=== PATIENT | male | born 1960 | race Two or more races ===

== ENCOUNTER → 2017-12-07 | Outpatient (CLI) | payer OTHER ==
[2017-12-07 11:12] LABS: ALT 30 U/L (21-72); AST 30 U/L (17-59); Cholesterol 152 mg/dL (<200); HDL Cholesterol 53 mg/dL (40-60); LDL Cholesterol,Calculated 63 mg/dL (0-99); Triglycerides 178 mg/dL (<150)
== END | disposition home or self-care (01) ==
LOC: LABWHC1 10:34
PROVIDERS: ATTEND Nurse Practitioner Adult Health
DX: E78.2 Mixed hyperlipidemia (principal)
CPT/HCPCS: 36415; 80061; 84450; 84460

== ENCOUNTER 2018-07-10 11:22 | Day surgery (SDC) | payer OTHER ==
[~2018-07-10 11:22] MED LIST: LACTATED RINGERS 1,000 ML IV SCH; SODIUM CHLORIDE 0.9% 1,000 ML IV SCH
[2018-07-10 11:58] VITALS: TEMP 98.2
[2018-07-10] MEDS ORDERED: PROPOFOL 10 MG/ML 20 ML VIAL IV ONE (12:10)
[2018-07-10 12:40] LABS: Anion Gap 7 mmol/L; Blood Urea Nitrogen 18 mg/dL (9-20); Calcium 9.7 mg/dL (8.4-10.2); Carbon Dioxide 23 mmol/L (22-30); Chloride 111 mmol/L (98-107); Glucose 96 mg/dL (74-99); Potassium 5.3 mmol/L (3.5-5.1); Sodium 141 mmol/L (137-145)
[2018-07-10] MEDS ORDERED: SODIUM CHLORIDE 0.9% 500 ML 500 ML IV ONE (12:41)
--- NOTE | 2018-07-10 13:07 | P.PCN ---
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 Recurrent runs of long nonsustained ventricular tachycardia with VA conduction [employer] device planted in [facility] in 2014, energy and ICD lead 143, serial #[id number] P waves 3.2 mV, pacing impedance 803 ohms, pacing threshold 0.4 V @ 0.5 milliseconds R waves 16 mV, pacing impedance 478 ohms, pacing threshold 0.6 V at 0.5 ms Shocking impedance 76 ohms Atrial pacing 34%, he is programmed DDDR, rate responsiveness and pace heart rate 60 bpm Histograms reveal predominant pacing at slow heart rates below 60 not above 110 beats a minute Shock and T wave protocol was used to induce ventricular fibrillation. This was adequately and appropriately detected at least sensitivity and successfully internally defibrillated with an 11 J shock Charge time 2 seconds shocking impedance 58 ohms, initial polarity AV node Wenckebach block 140 bpm VA Wenckebach block greater than 140 beats a minute PVARP reprogrammed MADIT RIT programming. Appropriate antitachycardia pacing cardioversion defibrillations First cardioversion 11 J first defibrillation 21 J Cinefluoroscopy revealed the ICD lead was not all the way in the RV apex. He had a DFT is adequate sensing adequate pacing threshold adequate patient is a dual-chamber device Bradycardia pacing reprogrammed. Rate responsiveness turned off. Basal rate reprogrammed to 50 PPM QRS width 104 ms Impression Recurrent nonsustained ventricular tachycardia with VA conduction Cinefluoroscopy revealed that the ICD lead was not in the RV apex completely. It was closer to the mid body of the right ventricle Appropriate pacing and sensing function DFT at or below 11 J Plan If he has recurrent ventricular tachycardia then consideration should be given for VT ablation Anesthesia: ARLIN
[2018-07-10 13:13] VITALS: RESP 16
[2018-07-10 13:58] VITALS: BP 131/70; PULSE 57
== END 2018-07-10 13:47 | disposition home or self-care (01) ==
LOC: CATHEP 11:22
PROVIDERS: ATTEND Internal Medicine Clinical Cardiac Electrophysiology
DX: Z45.02 Encounter for adjustment and management of automatic implantable cardiac defibrillator (principal); I11.0 Hypertensive heart disease with heart failure; I50.9 Heart failure, unspecified; E78.5 Hyperlipidemia, unspecified; Z72.0 Tobacco use; I48.91 Unspecified atrial fibrillation; I25.5 Ischemic cardiomyopathy; Z79.02 Long term (current) use of antithrombotics/antiplatelets; Z79.82 Long term (current) use of aspirin; Z79.899 Other long term (current) drug therapy; Z91.048 Other nonmedicinal substance allergy status; Z91.041 Radiographic dye allergy status; Z91.013 Allergy to seafood
CPT/HCPCS: 93642; 76000; 80048; J2704

== ENCOUNTER 2018-12-13 13:13 | Inpatient (IN) | payer OTHER ==
[2018-12-13] MEDS ORDERED: ASPIRIN 325 MG TAB PO STA (13:33)
--- NOTE | 2018-12-13 13:47 | ED ---
General Adult HPI - General Chief complaint: Chest Pain Stated complaint: chest pain Time Seen by Provider: 12/13/18 13:23 Source: patient, EMS, old records reviewed Mode of arrival: EMS Limitations: no limitations - History of Present Illness Initial comments: 58-year-old male presents for evaluation of bilateral arm pain, worse on the right, concern for chest pain. Patient has had history of CAD, ischemic cardiomyopathy with AICD. He is not currently on any anticoagulation. He is presenting from rehab, he has been in rehab for the past 3 days for cocaine and marijuana abuse. His current medications include only Coreg. He has previous stenting this was several years ago. Denies vomiting. Denies fever or chills. Denies abdominal pain. - Related Data Home Medications Medication Instructions Recorded Confirmed Atorvastatin [Lipitor] 40 mg PO HS 07/10/18 12/13/18 Carvedilol [Coreg] 12.5 mg PO BID 07/10/18 12/13/18 Clopidogrel [Plavix] 75 mg PO DAILY 07/10/18 12/13/18 Diazepam [Valium] 5 mg PO Q8HR PRN 07/10/18 12/13/18 Gabapentin [Neurontin] 300 mg PO TID 07/10/18 12/13/18 Lisinopril [Zestril] 2.5 mg PO DAILY 07/10/18 12/13/18 Montelukast [Singulair] 10 mg PO DAILY 07/10/18 12/13/18 traMADol HCl [Ultram] 75 mg PO Q6HR PRN 07/10/18 12/13/18 Allergies Allergy/AdvReac Type Severity Reaction Status Date / Time iodine Allergy Unknown Verified 12/13/18 13:34 Review of Systems ROS Statement: Those systems with pertinent positive or pertinent negative responses have been documented in the HPI. ROS Other: All systems not noted in ROS Statement are negative. Past Medical History Past Medical History: Myocardial Infarction ([place]) Additional Past Medical History / Comment(s): vertigo, deafness History of Any Multi-Drug Resistant Organisms: None Reported Past Surgical History: AICD, Ear Surgery, Heart Catheterization, Heart Catheterization With Stent, Orthopedic Surgery Past Psychological History: Depression Smoking Status: Current every day smoker Past Alcohol Use History: None Reported Past Drug Use History: Cocaine, Marijuana General Exam Limitations: no limitations General appearance: alert, in no apparent distress Head exam: Present: atraumatic, normocephalic Eye exam: Present: normal appearance, PERRL ENT exam: Present: normal exam Neck exam: Present: normal inspection. Absent: tenderness, meningismus Respiratory exam: Present: normal lung sounds bilaterally. Absent: respiratory distress, wheezes Cardiovascular Exam: Present: regular rate, normal rhythm GI/Abdominal exam: Present: soft. Absent: distended, tenderness Extremities exam: Present: normal inspection, normal capillary refill. Absent: pedal edema Back exam: Present: normal inspection, full ROM Neurological exam: Present: alert, oriented X3, CN II-XII intact. Absent: motor sensory deficit Psychiatric exam: Present: normal affect, normal mood Skin exam: Present: warm, dry, intact. Absent: cyanosis, diaphoretic Course Vital Signs 12/13/18 12/13/18 13:19 15:00 Temperature 98 F Pulse Rate 28 L 60 Respiratory 18 14 Rate Blood Pressure 106/66 100/54 O2 Sat by Pulse 98 96 Oximetry EKG Findings - EKG Comments: EKG Findings:: EKG: Obtained at 1319, no sinus rhythm, incomplete right bundle branch block, ST segment elevation in V1, biphasic T wave in V2 and V3, T-wave inversion in the lateral precordial leads and T-wave inversion in aVL. Rate of 60, NV interval 156, QRS duration 102, QTC 432. Repeat EKG obtained at 1339, similar appearance unchanged from EKG obtained 20 is prior. Sinus bradycardia, rate 53, NV interval 168, QRS duration 102, QTC 431 T-wave inversion throughout the precordial leads and aVL. Medical Decision Making - Medical Decision Making 58-year-old male history of ischemic cardiomyopathy status post stents, AICD placement presenting with bilateral arm pain, this is consistent with previous pain complaints patient has had with [place]. EKG is obtained which does show concerns for ischemic changes. Case is discussed with cardiology on-call Dr. Lazcano, he is able to toe EKG from the office obtained in January 2017 with very similar appearance to EKG today. Laboratory studies obtained, normal CBC, normal CMP, troponin is negative. Chest x-ray shows cardiomegaly with no acute process. Given the patient's pain complaint and previous history, he is initiated on heparin, given aspirin, given morphine. He will be admitted for serial cardiac enzymes, cardiology on consult. Assessment admitting physician Dr. Pena. Unstable angina. - Lab Data Result diagrams: 12/13/18 13:17 12/13/18 13:17 Lab Results 12/13/18 12/13/18 12/13/18 Range/Units 13:17 13:17 13:17 WBC 6.7 (3.8-10.6) k/uL RBC 4.47 (4.30-5.90) m/uL Hgb 13.5 (13.0-17.5) gm/dL Hct 42.6 (39.0-53.0) % MCV 95.3 (80.0-100.0) fL MCH 30.2 (25.0-35.0) pg MCHC 31.7 (31.0-37.0) g/dL RDW 13.4 (11.5-15.5) % Plt Count 139 L (150-450) k/uL Neutrophils % 44 % Lymphocytes % 44 % Monocytes % 6 % Eosinophils % 3 % Basophils % 1 % Neutrophils # 2.9 (1.3-7.7) k/uL Lymphocytes # 3.0 (1.0-4.8) k/uL Monocytes # 0.4 (0-1.0) k/uL Eosinophils # 0.2 (0-0.7) k/uL Basophils # 0.1 (0-0.2) k/uL PT 10.6 (9.0-12.0) sec INR 1.0 (<1.2) APTT 24.5 (22.0-30.0) sec Sodium 141 (137-145) mmol/L Potassium 5.0 (3.5-5.1) mmol/L Chloride 106 (98-107) mmol/L Carbon Dioxide 29 (22-30) mmol/L Anion Gap 6 mmol/L BUN 21 H (9-20) mg/dL Creatinine 0.93 (0.66-1.25) mg/dL Est GFR (CKD-EPI)AfAm >90 (>60 ml/min/1.73 sqM) Est GFR (CKD-EPI)NonAf >90 (>60 ml/min/1.73 sqM) Glucose 74 (74-99) mg/dL Calcium 9.6 (8.4-10.2) mg/dL Magnesium 1.8 (1.6-2.3) mg/dL Total Bilirubin 0.5 (0.2-1.3) mg/dL AST 13 L (17-59) U/L ALT 14 L (21-72) U/L Alkaline Phosphatase 49 (38-126) U/L Troponin I (0.000-0.034) ng/mL Total Protein 7.0 (6.3-8.2) g/dL Albumin 4.3 (3.5-5.0) g/dL 12/13/18 Range/Units 13:17 WBC (3.8-10.6) k/uL RBC (4.30-5.90) m/uL Hgb (13.0-17.5) gm/dL Hct (39.0-53.0) % MCV (80.0-100.0) fL MCH (25.0-35.0) pg MCHC (31.0-37.0) g/dL RDW (11.5-15.5) % Plt Count (150-450) k/uL Neutrophils % % Lymphocytes % % Monocytes % % Eosinophils % % Basophils % % Neutrophils # (1.3-7.7) k/uL Lymphocytes # (1.0-4.8) k/uL Monocytes # (0-1.0) k/uL Eosinophils # (0-0.7) k/uL Basophils # (0-0.2) k/uL PT (9.0-12.0) sec INR (<1.2) APTT (22.0-30.0) sec Sodium (137-145) mmol/L Potassium (3.5-5.1) mmol/L Chloride (98-107) mmol/L Carbon Dioxide (22-30) mmol/L Anion Gap mmol/L BUN (9-20) mg/dL Creatinine (0.66-1.25) mg/dL Est GFR (CKD-EPI)AfAm (>60 ml/min/1.73 sqM) Est GFR (CKD-EPI)NonAf (>60 ml/min/1.73 sqM) Glucose (74-99) mg/dL Calcium (8.4-10.2) mg/dL Magnesium (1.6-2.3) mg/dL Total Bilirubin (0.2-1.3) mg/dL AST (17-59) U/L ALT (21-72) U/L Alkaline Phosphatase (38-126) U/L Troponin I <0.012 (0.000-0.034) ng/mL Total Protein (6.3-8.2) g/dL Albumin (3.5-5.0) g/dL Critical Care Time Critical Care Time: Yes Total Critical Care Time: 35 Disposition Clinical Impression: Unstable angina pectoris Disposition: ADMITTED IP TO THIS [facility] Condition: Stable Is patient prescribed a controlled substance at d/c from ED?: No Referrals: Stefan Lombardo MD [Primary Care Provider] - 1-2 days Decision to Admit Reason: Admit from EC Decision Date: 12/13/18 Decision Time: 15:48
[2018-12-13] MEDS ORDERED: ATORVASTATIN 40 MG TAB PO STA (13:48)
[2018-12-13 14:03] LABS: Basophils # (A) 0.1 k/uL (0-0.2); Basophils % (A) 1 %; Eosinophils # (A) 0.2 k/uL (0-0.7); Eosinophils % (A) 3 %; HCT 42.6 % (39.0-53.0); HGB 13.5 gm/dL (13.0-17.5); Lymphocytes % (A) 44 %; MCH 30.2 pg (25.0-35.0); MCHC 31.7 g/dL (31.0-37.0); MCV 95.3 fL (80.0-100.0); Mean Platelet Volume 8.4; Monocytes # (A) 0.4 k/uL (0-1.0); Monocytes % (A) 6 %; Neutrophils # (A) 2.9 k/uL (1.3-7.7); Neutrophils % (A) 44 %; Platelet Count 139 k/uL (150-450); RBC 4.47 m/uL (4.30-5.90); RDW 13.4 % (11.5-15.5); WBC 6.7 k/uL (3.8-10.6)
--- NOTE | 2018-12-13 14:04 | XR ---
EXAMINATION TYPE: XR chest 1V portable DATE OF EXAM: 12/13/2018 COMPARISON: NONE HISTORY: Chest pain today. TECHNIQUE: Single AP portable frontal upright view of the chest is obtained. FINDINGS: There is no focal air space opacity, pleural effusion, or pneumothorax seen. The cardiac silhouette size is enlarged with dual lead pacemaker/AICD. The osseous structures are intact. IMPRESSION: Cardiomegaly without acute pulmonary process.
[2018-12-13 14:28] LABS: ALT 14 U/L (21-72); AST 13 U/L (17-59); Albumin 4.3 g/dL (3.5-5.0); Alkaline Phosphatase 49 U/L (38-126); Anion Gap 6 mmol/L; Blood Urea Nitrogen 21 mg/dL (9-20); Calcium 9.6 mg/dL (8.4-10.2); Carbon Dioxide 29 mmol/L (22-30); Chloride 106 mmol/L (98-107); Glucose 74 mg/dL (74-99); Magnesium 1.8 mg/dL (1.6-2.3); Sodium 141 mmol/L (137-145); Total Bilirubin 0.5 mg/dL (0.2-1.3)
[2018-12-13 14:32] LABS: Partial Thromboplastin Time 24.5 sec (22.0-30.0); Prothrombin Time 10.6 sec (9.0-12.0)
[2018-12-13] MEDS ORDERED: HEPARIN SODIUM,PORCINE 5,000 UNIT/ML 1 ML VIAL IV PRN (15:13)
[2018-12-13] MEDS ORDERED: MORPHINE SULFATE 4 MG/ML SYRINGE IVP STA (15:13)
[2018-12-13] MEDS ORDERED: HEPARIN SODIUM,PORCINE 5,000 UNIT/ML 1 ML VIAL IV ONE (15:13)
[2018-12-13] MEDS ORDERED: HEPARIN SOD,PORK IN 0.45% NACL 25,000 UNIT in 0.45% NACL 1 250ML.BAG IV SCH (15:15)
[2018-12-13] MEDS ORDERED: ONDANSETRON 4 MG/2 ML VIAL IVP PRN (15:42)
[2018-12-13] MEDS ORDERED: ACETAMINOPHEN TAB 325 MG TAB PO PRN (15:42)
[2018-12-13] MEDS ORDERED: NALOXONE 0.4 MG/ML 1 ML VIAL IV PRN (15:42)
[2018-12-13] MEDS ORDERED: SODIUM CHLORIDE 0.9% 1,000 ML IV SCH (15:45)
[2018-12-13] MEDS ORDERED: NITROGLYCERIN-D5W PMX 50 MG in DEXTROSE/WATER 1 250ML.BAG IV ONE (15:48)
[2018-12-13] MEDS: CARVEDILOL 12.5 MG TAB PO SCH (20:49)
[2018-12-13] MEDS ORDERED: ATORVASTATIN 40 MG TAB PO SCH (21:00)
[2018-12-13] MEDS: MORPHINE SULFATE 4 MG/ML SYRINGE IV PRN (21:08)
[2018-12-13 21:40] VITALS: BMI 23.6
[2018-12-14] MEDS: MORPHINE SULFATE 4 MG/ML SYRINGE IV PRN (01:25)
[2018-12-14] MEDS: CARVEDILOL 12.5 MG TAB PO SCH ×2 (06:19→17:10)
[2018-12-14 08:16] VITALS: PULSE 50
[2018-12-14 08:46] LABS: Basophils # (A) 0.1 k/uL (0-0.2); Basophils % (A) 1 %; Eosinophils # (A) 0.2 k/uL (0-0.7); Eosinophils % (A) 3 %; HCT 40.3 % (39.0-53.0); HGB 12.5 gm/dL (13.0-17.5); Lymphocytes # (A) 3.7 k/uL (1.0-4.8); Lymphocytes % (A) 50 %; MCH 30.2 pg (25.0-35.0); MCV 97.4 fL (80.0-100.0); Mean Platelet Volume 8.6; Monocytes # (A) 0.4 k/uL (0-1.0); Monocytes % (A) 6 %; Neutrophils # (A) 2.9 k/uL (1.3-7.7); Neutrophils % (A) 39 %; Platelet Count 133 k/uL (150-450); RBC 4.13 m/uL (4.30-5.90); RDW 13.6 % (11.5-15.5); WBC 7.5 k/uL (3.8-10.6)
[2018-12-14] MEDS ORDERED: LISINOPRIL 2.5 MG TAB PO SCH (09:00)
[2018-12-14] MEDS ORDERED: ASPIRIN 325 MG TAB PO SCH (09:00)
[2018-12-14] MEDS ORDERED: REGADENOSON 0.4 MG/5 ML SYRINGE IV ONE (09:12)
[2018-12-14] MEDS ORDERED: CAFFEINE CITRATE 60 MG/3 ML VIAL IV PRN (09:12)
[2018-12-14] MEDS ORDERED: AMINOPHYLLINE 500 MG/20 ML VIAL IV PRN (09:12)
[2018-12-14] MEDS ORDERED: DIAZEPAM 5 MG TAB PO PRN (10:59)
--- NOTE | 2018-12-14 11:29 | P.CRDCN ---
History of Present Illness History of present illness: This is Dr. Lazcano dictating a consult on this patient The patient was interviewed and examined by me IMPRESSION / ASSESSMENT: Atypical chest discomfort Known cardiac myopathy status post ICD implant Normal coronary arteries PLAN: Lexiscan Cardiolite stress test today Further management thereafter HPI Patient presented to the hospital to the emergency room complaining of bilateral shoulder pain and some chest discomfort. His baseline ECG is abnormal with abnormal ST segments in the precordial leads and inferior leads. I spoke to the ER physician and compared his ECGs from the past. The abnormalities are old. No new changes noted This morning the patient was still complaining of discomfort in the chest and bilateral shoulders his cardiac enzymes are normal 3 He has known cardiac myopathy and ICD has been placed in the past by me. He follows with Dr. Castillo. He is on cardio myopathy medications ROS: No fever chills or rigors, no cough, phlegm or expectoration, no nausea, vomiting or diarrhea, no hematuria, dysuria, no musculoskeletal complaints, no strokes or seizures, no skin lesions. EXAMINATION: Pulse rate in the 50s afebrile 97.5F blood pressure 114/58 mmHg Breath sounds are clear no rhonchi no crackles Heart sounds S1 and S2 are normal no murmurs or gallops or rub Extended is warm no edema REVIEW OF LABS, ECG & MEDICAL DATA Hemoglobin 12.5 potassium 5.0 BUN/creatinine normal Normal cardiac enzymes 3 Twelve-lead ECG shows sinus rhythm normal DC narrow QRS ST segment elevation with T-wave inversions across the precordial leads consistent with an old anterior wall infarct with T-wave inversions in the lateral precordial leads These changes were compared with the ECG available from the office and his old EKGs. These are chronically present in all his prior ECGs Past Medical History Past Medical History: Myocardial Infarction ([place]) Additional Past Medical History / Comment(s): vertigo, deafness Last Myocardial Infarction Date:: 2016 History of Any Multi-Drug Resistant Organisms: None Reported Past Surgical History: AICD, Ear Surgery, Heart Catheterization, Heart Catheterization With Stent, Orthopedic Surgery Past Anesthesia/Blood Transfusion Reactions: No Reported Reaction Date of Last Stent Placement:: 2016 Type of Cardiac Device: AICD Device Placement Date:: 2013 Past Psychological History: Depression Smoking Status: Current every day smoker Past Alcohol Use History: None Reported Past Drug Use History: Cocaine, Marijuana - Past Family History Mother Family Medical History: Diabetes Mellitus, Hyperlipidemia, Hypertension Medications and Allergies Home Medications Medication Instructions Recorded Confirmed Type Atorvastatin [Lipitor] 40 mg PO HS 07/10/18 12/13/18 History Carvedilol [Coreg] 12.5 mg PO BID 07/10/18 12/13/18 History Clopidogrel [Plavix] 75 mg PO DAILY 07/10/18 12/13/18 History Diazepam [Valium] 5 mg PO Q8HR PRN 07/10/18 12/13/18 History Gabapentin [Neurontin] 300 mg PO TID 07/10/18 12/13/18 History Lisinopril [Zestril] 2.5 mg PO DAILY 07/10/18 12/13/18 History Montelukast [Singulair] 10 mg PO DAILY 07/10/18 12/13/18 History traMADol HCl [Ultram] 75 mg PO Q6HR PRN 07/10/18 12/13/18 History Allergies Allergy/AdvReac Type Severity Reaction Status Date / Time iodine Allergy Unknown Verified 12/13/18 13:34 Physical Exam Vitals: Vital Signs Temp Pulse Pulse Resp BP BP Pulse Ox 12/14/18 08:19 50 L 16 12/14/18 08:00 97.5 F L 50 L 16 98/50 96 12/14/18 06:19 114/58 12/14/18 04:45 98.3 F 52 L 16 102/52 97 12/13/18 23:15 98.0 F 52 L 18 112/64 95 12/13/18 21:29 97.9 F 57 L 18 103/59 96 12/13/18 20:00 97.9 F 57 L 18 103/59 96 12/13/18 19:25 59 L 14 104/61 97 12/13/18 17:40 56 L 14 110/67 97 12/13/18 16:34 51 L 16 92/40 99 12/13/18 16:10 52 L 18 104/59 97 12/13/18 15:00 60 14 100/54 96 12/13/18 13:19 98 F 58 L 18 106/66 98 Intake and Output 12/13/18 12/14/18 12/14/18 22:59 06:59 14:59 Other: Voiding Method Urinal Toilet # Voids 1 1 Weight 71.1 kg 70.76 kg Results 12/14/18 06:23 12/13/18 13:17 Cardiac Enzymes 12/13/18 12/13/18 12/13/18 Range/Units 13:17 13:17 19:54 AST 13 L (17-59) U/L Troponin I <0.012 <0.012 (0.000-0.034) ng/mL 12/14/18 Range/Units 00:41 AST (17-59) U/L Troponin I <0.012 (0.000-0.034) ng/mL Coagulation 12/13/18 12/13/18 12/14/18 Range/Units 13:17 19:54 06:23 PT 10.6 (9.0-12.0) sec APTT 24.5 47.8 H 38.9 H (22.0-30.0) sec CBC 12/13/18 12/14/18 Range/Units 13:17 06:23 WBC 6.7 7.5 (3.8-10.6) k/uL RBC 4.47 4.13 L (4.30-5.90) m/uL Hgb 13.5 12.5 L (13.0-17.5) gm/dL Hct 42.6 40.3 (39.0-53.0) % Plt Count 139 L 133 L (150-450) k/uL Comprehensive Metabolic Panel 12/13/18 Range/Units 13:17 Sodium 141 (137-145) mmol/L Potassium 5.0 (3.5-5.1) mmol/L Chloride 106 (98-107) mmol/L Carbon Dioxide 29 (22-30) mmol/L BUN 21 H (9-20) mg/dL Creatinine 0.93 (0.66-1.25) mg/dL Glucose 74 (74-99) mg/dL Calcium 9.6 (8.4-10.2) mg/dL AST 13 L (17-59) U/L ALT 14 L (21-72) U/L Alkaline Phosphatase 49 (38-126) U/L Total Protein 7.0 (6.3-8.2) g/dL Albumin 4.3 (3.5-5.0) g/dL Current Medications Generic Name Dose Route Start Last Admin Trade Name Freq PRN Reason Stop Dose Admin Acetaminophen 650 mg 12/13/18 15:42 Tylenol Tab PO Q6HR PRN Mild Pain or Fever > 100.5 Aminophylline 100 mg 12/14/18 09:12 Aminophylline IV 12/14/18 23:59 ONCE PRN Patient Response Aspirin 325 mg 12/14/18 09:00 Aspirin PO DAILY [facility] Atorvastatin Calcium 40 mg 12/13/18 21:00 12/13/18 21:28 Lipitor PO 40 mg HS [facility] Administration Caffeine Citrate 60 mg 12/14/18 09:12 Cafcit Inj IV 12/14/18 23:59 ONCE PRN Patient Response Carvedilol 12.5 mg 12/13/18 17:30 12/14/18 06:19 Coreg PO 12.5 mg BID-W/MEALS [facility] Administration Clopidogrel Bisulfate 75 mg 12/15/18 09:00 Plavix PO DAILY [facility] Diazepam 5 mg 12/14/18 10:59 Valium PO Q8HR PRN Mild Pain Gabapentin 300 mg 12/14/18 16:00 Neurontin PO TID [facility] Heparin Sodium (Porcine) 0 unit 12/13/18 15:13 Heparin IV PER PROTOCOL PRN Low PTT Protocol Sodium Chloride 1,000 mls @ 20 mls/hr 12/13/18 15:45 12/13/18 16:14 Saline 0.9% IV 20 mls/hr .Q24H [facility] Administration Lisinopril 2.5 mg 12/14/18 09:00 Zestril PO DAILY [facility] Montelukast Sodium 10 mg 12/15/18 09:00 Singulair PO DAILY [facility] Morphine Sulfate 4 mg 12/13/18 15:42 12/14/18 01:25 Morphine Sulfate (Inj) IV 4 mg Q4HR PRN Administration Severe Pain Naloxone HCl 0.2 mg 12/13/18 15:42 Narcan IV Q2M PRN Opioid Reversal Ondansetron HCl 4 mg 12/13/18 15:42 Zofran IVP Q8HR PRN Nausea And Vomiting Intake and Output 12/13/18 12/14/18 12/14/18 22:59 06:59 14:59 Other: Voiding Method Urinal Toilet # Voids 1 1 Weight 71.1 kg 70.76 kg Patient Weight 12/15/18 06:59 Weight 70.76 kg 12/14/18 06:23 12/13/18 13:17
--- NOTE | 2018-12-14 11:54 | NM ---
EXAMINATION TYPE: NM stress lexiscan cardiolite DATE OF EXAM: 12/14/2018 COMPARISON: NONE HISTORY: Chest pain TECHNIQUE: After the intravenous administration of 9.64 mCi Tc 99m Sestamibi - Cardiolite resting SP ECT images acquired 45 minutes post injection. The patient received 0.4mg Lexiscan, 26 mCi Tc 99m Sestamibi - Stress images obtained 30 minutes post injection FINDINGS: Review of stress and rest SPECT images demonstrates decreased radio pharmaceutical uptake at the card iac apex, anterior lateral and septal distribution, inferior porras of the left ventricle on stress an d rest images. Decreased uptake is noted along the inferior wall on stress images towards the base of the heart greater than on rest images, similar findings along anterior wall towards the base of the heart. Gated analysis shows global wall motion hypokinesis with an estimated left ventricular ejectio n fraction of 24 %. IMPRESSION: Pharmacologically induced left ventricular myocardial ischemia, there are areas of probable prior inf arction. Probable colten-infarct reversible ischemia. Abnormal cardiac ejection fraction, consider echo cardiographic correlation.
[2018-12-14] MEDS ORDERED: GABAPENTIN 300 MG CAP PO SCH (16:00)
[2018-12-14 17:13] VITALS: BP 113/54; RESP 14; TEMP 98.2
--- NOTE | 2018-12-14 18:34 | HP ---
HISTORY AND PHYSICAL CHIEF COMPLAINT: Chest pain. HISTORY OF PRESENT ILLNESS: This is another admission for this 58-year-old white male. He started to have pain in the anterior chest area which radiated to the right shoulder. He has had 3 prior previous myocardial infarctions. He came to emergency room where he was admitted for observation. REVIEW OF SYSTEMS: He has had no syncope, CVAs, TIAs, change in vision, etc. He does have chronic vertigo and hearing loss since . He has had no abdominal pain, nausea, vomiting, melena, hematochezia, renal failure, urinary complaints, etc. Past medical history, family history, personal and social histories reveal that he is on Coreg and Plavix. He also takes lisinopril. HE IS ALLERGIC TO CONTRAST MEDIA. Surgically he has had several procedures on the right ear. He does smoke a pack of cigarettes a day. PHYSICAL EXAMINATION: Blood pressure 140/88 with a pulse of 64 and respirations of 20. He is afebrile. GENERAL: He appeared to be slender in no acute distress. Skin color is normal. Skin is warm, dry. Lymph nodes not enlarged. Head, ears, eyes, nose, mouth, and throat were normal. Neck veins are not distended. Carotids are normal. Chest is clear to auscultation and percussion. Cardiac exam demonstrated normal sinus rhythm and no murmurs or extra sounds. Abdomen is soft and nontender. There is no visceromegaly or masses. Extremities are normal. Neurologically he is intact. He is extremely hard of hearing. He was admitted to the hospital with diagnoses of : 1. Chest pain. 2. History of coronary artery disease. 3. History of 3 previous myocardial infarctions. 4. Chronic vertigo. 5. Nicotine abuse. 6. Deafness since . PLAN: 1. Bed rest. 2. IV fluids. 3. Serial EKGs and enzymes. 4. Cardiology consult. MMODL / IJN: [id number] /
--- NOTE | 2018-12-14 18:43 | PN ---
PROGRESS NOTE DATE OF SERVICE: 12/14/2018 CHIEF COMPLAINT: Chest pain. HISTORY OF PRESENT ILLNESS: This gentleman is doing well. He has not had any further chest pain. He has had no shortness of breath, diaphoresis. PHYSICAL EXAM: Vital signs are normal. Cardiac exam is normal. Chest is clear. IMPRESSION: 1. Chest pain. 2. History of coronary artery disease. 3. Congenital deafness. PLAN: Await cardiology evaluation. MMODL / IJN: [id number] /
--- NOTE | 2018-12-15 07:31 | DS ---
DISCHARGE SUMMARY CHIEF COMPLAINT: Chest pain. HISTORY OF PRESENT ILLNESS AND PHYSICAL EXAM: Details of this man's history and physical can be found in the initial workup. LABORATORY STUDIES: While he was in the hospital he had laboratory studies, details of which can be found in the laboratory section of his chart. COURSE IN THE HOSPITAL: After admission, he was placed on bedrest and started on intravenous fluids and serial EKGs and enzymes and they were normal. He was seen by Cardiology. They felt that he was stable and that he could be discharged home. He will follow with Cardiology and we will see him in my office also. He will go home on his usual activity, diet, and medications. FINAL DIAGNOSES: 1. Unstable angina pectoris. 2. Chronic vertigo. 3. Congenital deafness. 4. Coronary artery disease. 5. Status post 3 myocardial infarctions. OPERATIONS: None. CONSULTATIONS: Cardiology. He is improved. MASSIMO / LEW: [id number] /
[2018-12-15] MEDS ORDERED: CLOPIDOGREL 75 MG TAB PO SCH (09:00)
[2018-12-15] MEDS ORDERED: MONTELUKAST 10 MG TAB PO SCH (09:00)
--- NOTE | 2018-12-15 12:08 | P.STRESS ---
- Stress Test Note Stress Test Results/Findings: Exam Performed: NM stress lexiscan cardiolite Exam Date: 12/14/18 Reason for Exam: CHEST PAIN Height: 5 ft 9 in Weight: 70.76 kg Protocol: LEXISCAN CARDIOLITE Stage: Duration of Exercise: 8:00 Resting Heart Rate: 50 Resting Blood Pressure: 105/60 Maximum Achieved Heart Rate: 71 Maximum Achieved Blood Pressure: 119/60 85% PMHR: 139 100% PMHR: 163 METS: Technologist Comment: Stress Test Results/Findings: This is a 58-year-old gentleman with history of hypertension smoking history, family history being evaluated for symptoms of chest pain and shortness of breath. Stress data: Baseline EKG showed sinus rhythm with a diffuse ST-T wave normalities in anterolateral leads. There is also poor R-wave progression in the anterior leads size to of previous anterior wall TX. Blood pressure at rest his hand 5/60 with pulse rate of 50. A standard dose of Lexiscan was infused. EKGs taken during and after infusion did not reveal any changes from the baseline. Final impression: #1. Nondiagnostic Lexiscan stress test #2. Report on echo images to begin by the radiologist.
--- NOTE | 2018-12-18 08:10 | CDI ---
Documentation Clarification Form Date: 12/18/18 From: Gloria Ledesma Phone: If you have a question regarding this query, please contact Enid Persaud at [phone] between 8am and 5pm. Admit Date: 12/13/2018 3:42:00 PM Patient Name: Jesús Dc Visit Number: [id number] Discharge Date: 12/14/2018 5:33:00 PM ATTENTION: The Clinical Documentation Specialists (CDI) and [facility] Coding Staff appreciate your assistance in clarifying documentation. Please respond to the clarification below the line at the bottom and electronically sign. The CDI & [facility] Coding staff will review the response and follow-up if needed. Please note: Queries are made part of the Legal Health Record. If you have any questions, please contact the author of this message via ITS. Dr. Michel Pena Conflicting documentation has been found in the medical record: Documentation in your discharge summary states that the patient had unstable angina. Documentation in the cardiology consult note states the patient had atypical chest pain. History/Risk Factors: Patient has a history of CAD with previous stent insertion, ischemic cardiomyopathy with AICD and a previous DC. Clinical Indicators: Pain in the anterior chest area which radiated to the right shoulder. EKG: Per cardiology consult note, his baseline EKG is abnormal. Comparison to past EKGs, the abnormalities are old. No new changes. Troponin: less than 0.012 x3 Lexiscan: Pharmacologically induce left ventricular myocardial ischemia. There are areas of probable prior infarction. Probable periinfarct reversible ischemia. Abnormal cardiac ejection fraction. Consider echocardiographic correlation. Treatment: Bedrest, IV fluids, IV Nitroglycerin. In your opinion, what is the most clinically appropriate diagnosis for this patient? Unstable angina Atypical chest pain Other explanation of clinical findings Unable to determine (no explanation for clinical findings) MTDD
--- NOTE | 2018-12-18 17:25 | EST ---
Stress Test Results/Findings: Exam Performed: NM stress lexiscan cardiolite Exam Date: 12/14/18 Reason for Exam: CHEST PAIN Height: 5 ft 9 in Weight: 70.76 kg Protocol: LEXISCAN CARDIOLITE Stage: Duration of Exercise: 8:00 Resting Heart Rate: 50 Resting Blood Pressure: 105/60 Maximum Achieved Heart Rate: 71 Maximum Achieved Blood Pressure: 119/60 85% PMHR: 139 100% PMHR: 163 METS: Technologist Comment: Stress Test Results/Findings: This is a 58-year-old gentleman with history of hypertension smoking history, family history being evaluated for symptoms of chest pain and shortness of breath. Stress data: Baseline EKG showed sinus rhythm with a diffuse ST-T wave normalities in anterolateral leads. There is also poor R-wave progression in the anterior leads size to of previous anterior wall VA. Blood pressure at rest his hand 5/60 with pulse rate of 50. A standard dose of Lexiscan was infused. EKGs taken during and after infusion did not reveal any changes from the baseline. Final impression: #1. Nondiagnostic Lexiscan stress test #2. Report on echo images to begin by the radiologist. JACKELYN
--- NOTE | 2018-12-23 13:21 | MISC ---
MISCELLANOUS REPORT QUERY Unstable angina. MMODL / IJN: [id number] /
== END 2018-12-14 17:33 | disposition home or self-care (01) | DRG 303 ==
LOC: EC 13:13 → 3SCARD 15:42
PROVIDERS: ADMIT Family Medicine; ATTEND Family Medicine
DX: I25.110 Atherosclerotic heart disease of native coronary artery with unstable angina pectoris (principal); H90.5 Unspecified sensorineural hearing loss; F17.200 Nicotine dependence, unspecified, uncomplicated; I25.2 Old myocardial infarction; I25.5 Ischemic cardiomyopathy; R42 Dizziness and giddiness; I51.7 Cardiomegaly; F12.10 Cannabis abuse, uncomplicated; F14.10 Cocaine abuse, uncomplicated; F32.9 Major depressive disorder, single episode, unspecified; Z79.02 Long term (current) use of antithrombotics/antiplatelets; Z79.899 Other long term (current) drug therapy; Z95.810 Presence of automatic (implantable) cardiac defibrillator; Z91.041 Radiographic dye allergy status; Z82.49 Family history of ischemic heart disease and other diseases of the circulatory system; Z83.3 Family history of diabetes mellitus
CPT/HCPCS: 36415; 71045; 78452; 80053; 83735; 84484; 85025; 85610; 85730; 93005; 93017; 96365; 96366; 96367; 96375; 96376; 99291

== ENCOUNTER 2018-12-21 11:36 | Observation (INO) | payer OTHER ==
[2018-12-21] MEDS ORDERED: SODIUM CHLORIDE 0.9% 1,000 ML IV STA (11:43)
--- NOTE | 2018-12-21 12:08 | ED ---
Chest Pain HPI - General Chief Complaint: Chest Pain Stated Complaint: CHEST PAIN Time Seen by Provider: 12/21/18 11:42 Source: EMS, RN notes reviewed, old records reviewed Mode of arrival: EMS Limitations: no limitations - History of Present Illness Initial Comments: This is a 58-year-old male the ER for evaluation severe history of CAD, 3 stents placed as well as defibrillator. Patient coming in with chest pain from [place] for rehabilitation. Patient was here week ago for chest pain with no cause found. Patient presents for chest pain again today, states today was overall stressful is most days are in rehabilitation. Patient states she has chest pain right-sided chest pain to his back as well as left-sided chest pain, left-sided chest pain is currently resolved MD Complaint: chest pain -: hour(s) Onset: during rest Pain Location: substernal, left chest, right chest Pain Radiation: RUE, back Severity: moderate Severity scale (1-10): 4 Quality: aching, heaviness Consistency: intermittent Improves With: nothing Worsens With: exertion Treatments Prior to Arrival: none - Related Data Home Medications Medication Instructions Recorded Confirmed Atorvastatin [Lipitor] 40 mg PO HS 07/10/18 12/21/18 Carvedilol [Coreg*] 12.5 mg PO BID 07/10/18 12/21/18 Clopidogrel [Plavix] 75 mg PO DAILY 07/10/18 12/21/18 Lisinopril [Zestril] 2.5 mg PO DAILY 07/10/18 12/21/18 Montelukast [Singulair] 10 mg PO DAILY 07/10/18 12/21/18 Acetaminophen Tab [Tylenol] 325 mg PO DAILY 12/21/18 12/21/18 Azelastine HCl [Astepro] 2 spray EA NOSTRIL BID 12/21/18 12/21/18 Allergies Allergy/AdvReac Type Severity Reaction Status Date / Time iodine Allergy Unknown Verified 12/21/18 12:26 Review of Systems ROS Statement: Those systems with pertinent positive or pertinent negative responses have been documented in the HPI. ROS Other: All systems not noted in ROS Statement are negative. EKG Findings - EKG Comments: EKG Findings:: EKG shows sinus bradycardia rate of 51, WA 170, QRS 08, QTC 416 Past Medical History Past Medical History: Myocardial Infarction (MT) Additional Past Medical History / Comment(s): vertigo, deafness Last Myocardial Infarction Date:: 2016 History of Any Multi-Drug Resistant Organisms: None Reported Past Surgical History: AICD, Ear Surgery, Heart Catheterization, Heart Catheterization With Stent, Orthopedic Surgery, Pacemaker Additional Past Surgical History / Comment(s): Pacemaker/defib Past Anesthesia/Blood Transfusion Reactions: No Reported Reaction Date of Last Stent Placement:: 2016 Type of Cardiac Device: AICD Device Placement Date:: 2013 Past Psychological History: Depression Smoking Status: Current every day smoker Past Alcohol Use History: None Reported Past Drug Use History: Cocaine, Marijuana - Past Family History Mother Family Medical History: Diabetes Mellitus, Hyperlipidemia, Hypertension General Exam Limitations: no limitations General appearance: alert, in no apparent distress Head exam: Present: atraumatic, normocephalic, normal inspection Eye exam: Present: normal appearance, PERRL, EOMI. Absent: scleral icterus, conjunctival injection, periorbital swelling ENT exam: Present: normal exam, mucous membranes moist Neck exam: Present: normal inspection. Absent: tenderness, meningismus, lym phadenopathy Respiratory exam: Present: normal lung sounds bilaterally. Absent: respiratory distress, wheezes, rales, rhonchi, stridor Cardiovascular Exam: Present: normal rhythm, bradycardia, normal heart sounds. Absent: systolic murmur, diastolic murmur, rubs, gallop, clicks GI/Abdominal exam: Present: soft, normal bowel sounds. Absent: distended, tenderness, guarding, rebound, rigid Extremities exam: Present: normal inspection, full ROM, normal capillary refill. Absent: tenderness, pedal edema, joint swelling, calf tenderness Back exam: Present: normal inspection Neurological exam: Present: alert, oriented X3, CN II-XII intact Psychiatric exam: Present: normal affect, normal mood Skin exam: Present: warm, dry, intact, normal color. Absent: rash Course Vital Signs 12/21/18 12/21/18 12/21/18 11:38 12:03 12:15 Temperature 98.3 F Pulse Rate 54 L 54 L Respiratory 18 20 18 Rate Blood Pressure 111/76 119/75 O2 Sat by Pulse 99 99 Oximetry - Reevaluation(s) Reevaluation #1: 12/21/18 13:46 Medical record and prior hospitalization or reviewed Reevaluation #2: 12/21/18 13:46 Patient remains chest pain-free Reevaluation #3: 12/21/18 13:46 Spoke with cardiology who did also look at EKG Reevaluation #5: 12/21/18 13:46 Rhythm strip shows heart rate of 57 interpreted by me Chest Pain MDM - MDM 58 male the ER for evaluation of chest pain. Positive chest pain which resolved upon arrival to emergency department. Patient be admitted for unstable angina and cardiology evaluation Critical Care Time Critical Care Time: Yes Total Critical Care Time: 31 Disposition Clinical Impression: Unstable angina pectoris, Chest pain Disposition: ADMITTED IP TO THIS HOSP Condition: Undetermined Instructions (If sedation given, give patient instructions): Chest Pain (ED) Is patient prescribed a controlled substance at d/c from ED?: No Referrals: Stefan Lombardo MD [Primary Care Provider] - 1-2 days
--- NOTE | 2018-12-21 12:11 | XR ---
EXAMINATION TYPE: XR chest 2V DATE OF EXAM: 12/21/2018 COMPARISON: 12/13/2018 TECHNIQUE: PA and lateral views submitted. HISTORY: Chest pain FINDINGS: The lungs are clear and there is no pneumothorax, pleural effusion, or focal pneumonia. Cardiac dev ice is seen. No overt failure. Biapical pleural thickening. Hypertrophic and degenerative change of t he vertebral column. Hyperinflation suggests COPD. Coronary artery stenting noted. IMPRESSION: 1. No acute process.
[2018-12-21 12:20] LABS: Basophils # (A) 0.1 k/uL (0-0.2); Basophils % (A) 1 %; Eosinophils # (A) 0.3 k/uL (0-0.7); Eosinophils % (A) 4 %; HCT 41.7 % (39.0-53.0); HGB 13.9 gm/dL (13.0-17.5); Lymphocytes # (A) 3.4 k/uL (1.0-4.8); Lymphocytes % (A) 44 %; MCH 30.7 pg (25.0-35.0); MCHC 33.3 g/dL (31.0-37.0); Mean Platelet Volume 8.7; Monocytes # (A) 0.5 k/uL (0-1.0); Monocytes % (A) 7 %; Neutrophils # (A) 3.2 k/uL (1.3-7.7); Neutrophils % (A) 42 %; Platelet Count 158 k/uL (150-450); RBC 4.52 m/uL (4.30-5.90); RDW 14.2 % (11.5-15.5); WBC 7.7 k/uL (3.8-10.6)
[2018-12-21 12:34] LABS: MCV 92.3 fL (80.0-100.0)
[2018-12-21 12:45] LABS: ALT 17 U/L (21-72); AST 16 U/L (17-59); Albumin 4.6 g/dL (3.5-5.0); Alkaline Phosphatase 56 U/L (38-126); Anion Gap 9 mmol/L; Blood Urea Nitrogen 25 mg/dL (9-20); Calcium 9.7 mg/dL (8.4-10.2); Carbon Dioxide 24 mmol/L (22-30); Chloride 106 mmol/L (98-107); Glucose 84 mg/dL (74-99); Lipase 248 U/L (23-300); Potassium 5.6 mmol/L (3.5-5.1); Sodium 139 mmol/L (137-145); Total Bilirubin 0.5 mg/dL (0.2-1.3); Total Protein 7.4 g/dL (6.3-8.2)
[2018-12-21 12:54] LABS: D-Dimer 0.35 mg/L FEU (<0.60); Partial Thromboplastin Time 24.8 sec (22.0-30.0); Prothrombin Time 10.9 sec (9.0-12.0)
[2018-12-21] MEDS ORDERED: HEPARIN SODIUM,PORCINE 5,000 UNIT/ML 1 ML VIAL IV PRN (13:39)
[2018-12-21] MEDS ORDERED: ASPIRIN 81 MG PO STA (13:39)
[2018-12-21] MEDS ORDERED: HEPARIN SODIUM,PORCINE 5,000 UNIT/ML 1 ML VIAL IV ONE (13:39)
[2018-12-21] MEDS ORDERED: NITROGLYCERIN SL TABS 0.4 MG TAB SUBLINGUAL PRN (13:39)
[2018-12-21] MEDS ORDERED: MORPHINE SULFATE 4 MG/ML SYRINGE IVP STA (13:43)
[2018-12-21] MEDS ORDERED: HEPARIN SOD,PORK IN 0.45% NACL 25,000 UNIT in 0.45% NACL 1 250ML.BAG IV SCH (13:45)
[2018-12-21 14:35] VITALS: BMI 24.0
[2018-12-21] MEDS ORDERED: SODIUM CHLORIDE 0.9% 500 ML 500 ML IV SCH (15:00)
[2018-12-21] MEDS ORDERED: diphenhydrAMINE 50 MG/ML 1 ML VIAL IVP STA (15:27)
[2018-12-21] MEDS ORDERED: FAMOTIDINE 20 MG/2 ML VIAL IV STA (15:27)
[2018-12-21] MEDS ORDERED: methylPREDNISolone SOD SUCCI 125 MG/2 ML VIAL IV STA (15:27)
--- NOTE | 2018-12-21 16:18 | CT ---
EXAMINATION TYPE: CT angio chest DATE OF EXAM: 12/21/2018 COMPARISON: None HISTORY: Difficulty breathing. CT DLP: 305.2 mGycm CONTRAST: CT chest with contrast and 3D reconstruction with MIP imaging is performed with IV Contrast, patient injected with 72 mL of Isovue 370. Contrast-enhanced CT of the chest was performed through the course of the pulmonary arteries with radha g and mediastinal window settings submitted. 3D reconstruction with MIP imaging was also performed. PULMONARY ARTERIES: The pulmonary arteries and their major tributaries are patent. I do not see macrina dence for sizable filling defect to suggest pulmonary embolic process. LUNGS: The lungs are clear and free of infiltrate. No evidence for atelectasis. No pulmonary nodule or mass is detected. No pleural effusion. MEDIASTINUM: Thoracic aorta is of normal caliber,however, evaluation is limited given timing of the contrast bolus. If there is concern for thoracic aortic pathology consider SCHUYLER. Correlate clinicall y . The heart is not enlarged. No evidence for mediastinal mass. No mediastinal lymph nodes greater than 1cm. HILAR STRUCTURES: No evidence for mass. No hilar lymph nodes greater than 1 cm. UPPER ABDOMEN: No significant abnormality is seen. IMPRESSION: 1. No evidence for Pulmonary embolism at this time.
[2018-12-21] MEDS: CARVEDILOL 12.5 MG TAB PO SCH (17:12)
[2018-12-21] MEDS ORDERED: ACETAMINOPHEN TAB 325 MG TAB PO PRN (19:49)
[2018-12-21] MEDS: AZELASTINE 137MCG/SPRAY EA NOSTRIL SCH (20:02)
[2018-12-21] MEDS: MORPHINE SULFATE 4 MG/ML SYRINGE IVP PRN (20:02)
[2018-12-21] MEDS ORDERED: ATORVASTATIN 40 MG TAB PO SCH (21:00)
[2018-12-22] MEDS: MORPHINE SULFATE 4 MG/ML SYRINGE IVP PRN ×2 (01:11→06:34)
[2018-12-22 07:59] VITALS: RESP 18
[2018-12-22] MEDS: AZELASTINE 137MCG/SPRAY EA NOSTRIL SCH (08:36)
[2018-12-22] MEDS: CARVEDILOL 12.5 MG TAB PO SCH (08:36)
[2018-12-22 08:37] LABS: Mean Platelet Volume 8.5; Platelet Count 136 k/uL (150-450)
[2018-12-22 08:54] LABS: Cholesterol 131 mg/dL (<200); HDL Cholesterol 55 mg/dL (40-60); LDL Cholesterol,Calculated 66 mg/dL (0-99); Triglycerides 48 mg/dL (<150)
[2018-12-22] MEDS ORDERED: ASPIRIN 325 MG TAB PO SCH (09:00)
[2018-12-22] MEDS ORDERED: ACETAMINOPHEN TAB 325 MG TAB PO SCH (09:00)
[2018-12-22] MEDS ORDERED: CLOPIDOGREL 75 MG TAB PO SCH (09:00)
[2018-12-22] MEDS ORDERED: LISINOPRIL 2.5 MG TAB PO SCH (09:00)
[2018-12-22] MEDS ORDERED: MONTELUKAST 10 MG TAB PO SCH (09:00)
[2018-12-22] MEDS ORDERED: ATORVASTATIN 80 MG TAB PO SCH (09:00)
--- NOTE | 2018-12-22 10:39 | ECHOF ---
Referral Reason:cp MEASUREMENTS -------- HEIGHT: 175.3 cm WEIGHT: 73.5 kg BP: 119/75 RVIDd: 3.6 cm (< 3.3) IVSd: 1.3 cm (0.6 - 1.1) LVIDd: 6.9 cm (3.9 - 5.3) LVPWd: 1.3 cm (0.6 - 1.1) IVSs: 2.1 cm LVIDs: 4.1 cm LVPWs: 1.8 cm LA Diam: 3.7 cm (2.7 - 3.8) LAESV Index (A-L): 29.85 ml/m Ao Diam: 3.4 cm (2.0 - 3.7) AV Cusp: 2.2 cm (1.5 - 2.6) MV EXCURSION: 11.106 mm (> 18.000) MV EF SLOPE: 56 mm/s (70 - 150) EPSS: 2.8 cm MV E Elton: 0.75 m/s MV DecT: 155 ms MV A Elton: 0.56 m/s MV E/A Ratio: 1.34 RAP: 5.00 mmHg RVSP: 35.26 mmHg FINDINGS -------- AICD This was a technically difficult study with suboptimal views. The left ventricle is severely dilated. There is mild concentric left ventricular hypertrophy. Ov erall left ventricular systolic function is severely impaired with, an EF between 20 - 25 %. Apical anterior LV wall motion is akinetic. Apical lateral LV wall motion is akinetic. Apical inferio r LV wall motion is akinetic. Apical septum LV wall motion is akinetic. The right ventricle is mildly enlarged. LA is midly dilated 29-33ml/m2. The right atrium is normal in size. 3 ml of Lumason was utilized for enhancement of images. Interatrial and interventricular septum intact. There is mild aortic valve sclerosis. The mitral valve leaflets are mildly thickened. Mild mitral annular calcification present. Mild m itral regurgitation is present. Mild tricuspid regurgitation present. There is mild pulmonary hypertension. The right ventricular systolic pressure, as measured by Doppler, is 35.26mmHg. The pulmonic valve was not well visualized. The aortic root size is normal. Normal inferior vena cava with normal inspiratory collapse consistent with estimated right atrial pre ssure of 5 mmHg. The inferior vena cava is mildly dilated. There is no pericardial effusion. CONCLUSIONS -------- 1. AICD 2. This was a technically difficult study with suboptimal views. 3. The left ventricle is severely dilated. 4. There is mild concentric left ventricular hypertrophy. 5. Apical anterior LV wall motion is akinetic. 6. Apical lateral LV wall motion is akinetic. 7. Apical inferior LV wall motion is akinetic. 8. Apical septum LV wall motion is akinetic. 9. The right ventricle is mildly enlarged. 10. LA is midly dilated 29-33ml/m2. 11. The right atrium is normal in size. 12. 3 ml of Lumason was utilized for enhancement of images. 13. Interatrial and interventricular septum intact. 14. There is mild aortic valve sclerosis. 15. The mitral valve leaflets are mildly thickened. 16. Mild mitral annular calcification present. 17. Mild mitral regurgitation is present. 18. Mild tricuspid regurgitation present. 19. There is mild pulmonary hypertension. 20. The right ventricular systolic pressure, as measured by Doppler, is 35.26mmHg. 21. The pulmonic valve was not well visualized. 22. The aortic root size is normal. 23. Normal inferior vena cava with normal inspiratory collapse consistent with estimated right atrial pressure of 5 mmHg. 24. The inferior vena cava is mildly dilated. 25. There is no pericardial effusion. ONLINE EDITOR: Mckayla Up RDCS
[2018-12-22 11:36] VITALS: BP 96/54; PULSE 57; TEMP 98.7
--- NOTE | 2018-12-22 13:57 | HP ---
HISTORY AND PHYSICAL CHIEF COMPLAINT: Chest pain. HISTORY OF PRESENT ILLNESS: This is another admission for this 58-year-old white male from [place]. Patient started to have chest pain, came to the emergency room. Had some EKG changes, but enzymes are normal. He has a history of coronary artery disease. He has had 3 stents and he has a defibrillator. REVIEW OF SYSTEMS: He has had no headaches, syncope, difficulty in vision and hearing, cough, hemoptysis, pleurisy, COPD, asthma, murmurs, rheumatic fever, orthopnea, PND, abdominal pain, nausea, vomiting, hematemesis, melena, hematochezia, colitis, diverticulosis, diverticulitis, hemorrhoids, jaundice, hepatitis, cirrhosis, hematuria, frequency, urgency, renal failure, diabetes, etc. Past medical history, family history and personal and social histories reveal that he is allergic to IODINE. He is on Lipitor 40 at bedtime, carvedilol 12.5 b.i.d., Plavix 75 a day, lisinopril 2.5 daily, singular 10 once a day, Tylenol, and steroid nasal spray. The laboratory studies reveal normal CBC. Potassium was 5.6. Liver functions were normal. Troponins were negative. Lipase was 248. PHYSICAL EXAMINATION: Temperature 98.4, blood pressure 112/67, pulse 51, respirations 18. GENERAL: He appeared to be slender, well developed, well nourished, in no acute distress. Skin color is normal. Skin is warm, dry. Lymph nodes are not enlarged. Head, ears, eyes, nose, mouth, and throat were normal. Carotids normal. Neck veins are not distended. Thyroid was not enlarged. Chest is clear. There are no rales or rhonchi. Cardiac exam is normal, normal sinus rhythm with no murmurs or extra sounds. Abdomen is flat, soft, nontender without any visceromegaly or masses. Extremities are normal. Neurologically, he is intact. IMPRESSION: 1. Chest pain. 2. History of coronary artery disease, status post 3 stents and ICD. PLAN: 1. Bed rest. 2. IV fluids. 3. Serial EKG and enzymes. 4. Cardiology consult. MMODL / IJN: [id number] /
--- NOTE | 2018-12-22 17:06 | CONS ---
CONSULTATION Jesús Dc is a 58-year-old gentleman, a recovering cocaine addict who is now in [place] getting detoxed. He came in because of an episode of sharp pain in the chest and some shortness of breath. After arrival, he is comfortable, resting, denies any further chest pain. He is comfortable. He was here in the hospital on December 12 and had a Lexiscan stress test which revealed predominantly fixed defect with minimal colten- infarct reversibility. This is not considered significant and the patient is also known to have ischemic cardiomyopathy with a prior myocardial infarction in 2011 and 2015 and also has an ICD placed in July 2018. He is resting comfortably without symptoms at the time of my evaluation. PAST MEDICAL HISTORY: 1. Remarkable for ischemic cardiomyopathy with ICD placement. 2. History of bronchial asthma. 3. Hypertension. 4. Hyperlipidemia. 5. Cocaine addiction being detoxed in [place]. MEDICATIONS: At home include aspirin 81 mg daily, Plavix 75 mg daily, Coreg 12.5 mg b.i.d., lisinopril 2.5 mg daily, and he takes Singulair 10 mg daily. PHYSICAL EXAMINATION: Blood pressure is 108/70, pulse rate is 60 per minute and regular. HEENT unremarkable. Fundus was not examined by me. Neck is supple. There is no JVD. I do not hear a carotid bruit heart exam reveals S1, S2 heard normally. Short systolic murmur is noted. Lungs reveal diminished air entry. Abdomen is soft. Lower extremities reveal diminished pulses. Central nervous system grossly within normal limits. EKG revealed a sinus mechanism with evidence of old anterior [place] of indeterminate age with a ST- segment abnormality and acute T-wave inversion and leftward axis. These are not new findings. These were also seen on previous EKG. LABORATORY DATA: Reveals unremarkable troponins. IMPRESSION: 1. A atypical chest pain. D-dimer is negative. Recent stress test revealed predominantly fixed defect. Pain is atypical, but patient does have history of ischemic cardiomyopathy with prior myocardial infarction, stenting and ICD. 2. History of cocaine addiction, being detoxed. RECOMMENDATIONS: I am recommending that we perform echocardiogram, increase activity, plan for discharge and follow up with Dr. Murphy who he sees in the outpatient setting. I discussed my thoughts in detail with the patient. Thank you very much for the consult. MMODL / IJN: [id number] /
--- NOTE | 2018-12-22 20:08 | DS ---
DISCHARGE SUMMARY CHIEF COMPLAINT: Chest pain. HISTORY OF PRESENT ILLNESS AND PHYSICAL EXAMINATION: Details of this man's history and physical can be found in the initial workup. LABORATORY STUDIES: While he was in the hospital he had laboratory studies, details of which can be found in the laboratory section of his chart. COURSE IN THE HOSPITAL: After admission he was placed on bedrest, started on intravenous fluids and had serial EKGs and enzymes which were normal. He was seen by Cardiology. Echocardiogram was done and a CTA of the chest was negative. He was doing well. It was felt that he could return to [place] on 12/22/2018. He will return there on his usual activity, diet and medication. FINAL DIAGNOSES: 1. Chest pain. 2. History of coronary artery disease. 3. History of implantation of ICD. OPERATIONS: None. CONSULTATION: Cardiology. He is improved. MASSIMO / LEW: [id number] /
== END 2018-12-22 15:17 | disposition home or self-care (01) ==
LOC: EC 11:36 → 1SOBS 13:39
PROVIDERS: ADMIT Family Medicine; ATTEND Family Medicine
DX: R07.89 Other chest pain (principal); I25.110 Atherosclerotic heart disease of native coronary artery with unstable angina pectoris; I25.5 Ischemic cardiomyopathy; F14.20 Cocaine dependence, uncomplicated; E78.5 Hyperlipidemia, unspecified; F17.200 Nicotine dependence, unspecified, uncomplicated; H91.90 Unspecified hearing loss, unspecified ear; I10 Essential (primary) hypertension; J45.909 Unspecified asthma, uncomplicated; F32.9 Major depressive disorder, single episode, unspecified; Z95.810 Presence of automatic (implantable) cardiac defibrillator; I25.2 Old myocardial infarction; Z95.5 Presence of coronary angioplasty implant and graft; Z79.02 Long term (current) use of antithrombotics/antiplatelets; Z79.899 Other long term (current) drug therapy; Z88.8 Allergy status to other drugs, medicaments and biological substances; Z82.49 Family history of ischemic heart disease and other diseases of the circulatory system; Z83.3 Family history of diabetes mellitus
CPT/HCPCS: 96366 ×2; 96375; 96376 ×2; 96361; 96365; 99291; 36415; 93005; 93306; 85379; 83880; 80061; 80053; 83690; 83735; 84484; 85025; 85049; 85610; 85730 ×2; 71046; 71275; G0378 ×2; J2270 ×2; J1200; J1644 ×2; J2930; Q9967

== ENCOUNTER → 2022-11-17 | Outpatient (CLI) | payer OTHER ==
[2022-11-17 18:23] LABS: African American GFR (CKD) 87.4 (60.0-200.0); Anion Gap 9.5 mmol/L (10.00-18.00); BUN/Creat Ratio 21.04 Ratio (12.00-20.00); Blood Urea Nitrogen 22.3 mg/dL (9.0-27.0); Calcium 9.3 mg/dL (8.7-10.3); Carbon Dioxide 26.3 mmol/L (20.0-27.5); Non-African American GFR(CKD) 75.4 (60.0-200.0); Potassium 4.7 mmol/L (3.5-5.5)
== END | disposition home or self-care (01) ==
LOC: LABWHC1 11:01
PROVIDERS: ATTEND Internal Medicine Cardiovascular Disease
DX: I25.5 Ischemic cardiomyopathy (principal)
CPT/HCPCS: 36415; 80048; 83880